=== PATIENT | female | born 2000 | race African-American/Black ===

== ENCOUNTER 2020-08-02 10:04 | Emergency (ER) | payer OTHER ==
[2020-08-02] MEDS ORDERED: Clindamycin HCl 150 MG Cap PO ONE (10:38)
--- NOTE | 2020-08-02 10:38 | EDM.PDOC ---
ED HPI GENERAL MEDICAL PROBLEM - General Chief Complaint: Skin Complaint Stated Complaint: CYST ON LOWER BACK Time Seen by Provider: 08/02/20 10:24 - History of Present Illness INITIAL COMMENTS - FREE TEXT/NARRATIVE: 20-year-old female presents the emergency room with worsening pain for a bump on her bottom. Patient was seen in the walk-in clinic several days ago started on Augmentin the patient had this filled yesterday and started. She is taking 500 mg twice daily. She not have any fevers or chills this thing is considerably tender. Patient is not having any other associated symptoms with this most unfortunate problem. Patient is 33 weeks . Lower Back Pain Score (Numeric/FACES): 7 - Related Data Allergies Allergy/AdvReac Type Severity Reaction Status Date / Time No Known Allergies Allergy Verified 08/02/20 10:22 Home Meds: Home Meds Amoxicillin/Clavulanate K [Augmentin 500-125 MG] 1 tab PO BID 08/02/20 [History] Clindamycin HCl 450 mg PO TID #63 capsule 08/02/20 [Rx] Pnv No.95/Ferrous Fum/Folic AC [ Caplet] 1 each PO DAILY 08/02/20 [History] ED ROS GENERAL - Review of Systems Review Of Systems: See Below Constitutional: Reports: No Symptoms Respiratory: Reports: No Symptoms Cardiovascular: Reports: No Symptoms GI/Abdominal: Reports: No Symptoms ED EXAM, SKIN/RASH Exam: See Below Exam Limited By: No Limitations General Appearance: Alert, No Apparent Distress Respiratory/Chest: No Respiratory Distress, Lungs Clear, Normal Breath Sounds Cardiovascular: Regular Rate, Rhythm, No Edema, No Murmur Location, Skin: Other (Over the sacrum 3 to 4 cm proximal to the anus she has a 1.5 x 1 cm area favoring the right side no area of fluctuation with this however it is quite tender with palpation mildly erythematous.) Lymphatic: No Adenopathy Course - Vital Signs Last Recorded V/S: Last Vital Signs Temp 37.0 C 08/02/20 10:17 Pulse 96 08/02/20 10:17 Resp 20 08/02/20 10:17 BP 109/54 L 08/02/20 10:17 Pulse Ox 98 08/02/20 10:17 - Re-Assessments/Exams Free Text/Narrative Re-Assessment/Exam: 08/02/20 10:47 At this point I think clindamycin be more appropriate choice of antibiotics. I discussed this with Dr. Foster. The patient will see her on the second of this month for routine OB follow-up. The patient has surgical follow-up scheduled tomorrow with Dr. Norris. At this point will change the Augmentin from 500 twice daily to clindamycin 450 3 times daily. Departure - Departure Time of Disposition: 10:48 Disposition: Home, Self-Care 01 Clinical Impression: Pilonidal cyst with abscess - Discharge Information Referrals: Claudia Chambers MD [Primary Care Provider] - Additional Instructions: Return to the emergency room with any questions problems or worsening symptoms. Follow-up with Dr. Norris tomorrow as scheduled Stop the Augmentin, or the amoxicillin/clavulanic acid. You have been started on clindamycin 450 mg 3 times daily. Your first dose was given here in the emergency room. Follow-up with Dr. Foster on August 07 as scheduled. Try sitz bath with Epson salts for about 20 minutes 3 or 4 times a day this should help with the discomfort. Sepsis Event Note (ED) - Evaluation Sepsis Screening Result: No Definite Risk - Focused Exam Vital Signs: Vital Signs Temp Pulse Resp BP Pulse Ox 08/02/20 10:17 37.0 C 96 20 109/54 L 98
== END 2020-08-02 11:06 | disposition home or self-care (01) ==
LOC: JD.ED 10:04
DX: L05.01 Pilonidal cyst with abscess (principal)
CPT/HCPCS: 99282; A9270

== ENCOUNTER 2020-09-08 08:42 | Inpatient (IN) | payer OTHER ==
[2020-09-08] MEDS ORDERED: Sodium Chloride 0.9% 10 ML Syringe FLUSH PRN (10:10)
[2020-09-08] MEDS ORDERED: Acetaminophen 325 MG Tab PO PRN (10:10)
[2020-09-08] MEDS ORDERED: Ondansetron 4 MG/2 ML SDV IVPUSH PRN (10:10)
[2020-09-08] MEDS ORDERED: Lactated Ringers 1,000 ML IV SCH (10:15)
[2020-09-08] MEDS ORDERED: Oxytocin/Lactated Ringers 10 UNIT/1,000 ML BAG IV SCH ×2 (10:15)
--- NOTE | 2020-09-08 14:14 | PCM.SN.2 ---
- Free Text/Narrative Note: Called for IV start. Located left proximal AC basilic vein under ultrasound. [id number] technique X1 pass after sterile chloroprep. Routine insertion. Good flush and return. Placed on pigtail with pressure cap. RN at bedside assisting. 20g 1.88" catheter secured with clear occlusive and tape. No concerns at this time.
[2020-09-08] MEDS: Nalbuphine 10 MG/ML Syringe IVPUSH PRN ×2 (15:39→16:34)
--- NOTE | 2020-09-08 17:18 | PCM.LDHP ---
L&D History of Present Illness - General Date of Service: 09/08/20 Admit Problem/Dx: Patient Status Order with Admit Dx/Problem 09/08/20 10:10 Patient Status [ADT] Routine Admission Diagnosis/Problem Admission Diagnosis/Problem - History of Present Illness Introduction:: 20 year old at 38w4 here with srom and labor. Clear fluid. 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: Other OB/BYN History: Second pregancy Social & Family History - Family History Family Medical History: Noncontributory - Tobacco Use Tobacco Use Status *Q: Never Tobacco User Second Hand Smoke Exposure: No - Caffeine Use Caffeine Use: Reports: Coffee - Recreational Drug Use Recreational Drug Use: No H&P Review of Systems - Review of Systems: Review Of Systems: See Below General: Reports: No Symptoms HEENT: Reports: No Symptoms Pulmonary: Reports: No Symptoms Cardiovascular: Reports: No Symptoms Gastrointestinal: Reports: No Symptoms Genitourinary: Reports: No Symptoms Musculoskeletal: Reports: No Symptoms Skin: Reports: No Symptoms Psychiatric: Reports: No Symptoms Neurological: Reports: No Symptoms Hematologic/Lymphatic: Reports: No Symptoms Immunologic: Reports: No Symptoms L&D Exam - Exam Exam: See Below - Vital Signs Vital Signs: Last Vital Signs Temp 36.9 C 09/08/20 08:55 Pulse 79 09/08/20 08:55 Resp 14 09/08/20 08:55 BP 120/66 09/08/20 08:55 Pulse Ox 98 09/08/20 08:55 Weight: 89.721 kg - OB Specific Contraction Intensity: Moderate Movement: Active Heart Tones: Present Heart Rate (FHR) Variability: Moderate (6-25 bmp) Presentation: Vertex - Chavez Score Chavez Score Cervix Position: Midposition Chavez Score Consistency: Soft Chavez Score Effacement: 51-70% Chavez Score Dilation: 1-2 cm Chavez Score Infant's Station: -2 Chavez Score Total: 7 - Exam General: Alert, Oriented HEENT: PERRLA, Conjunctiva Clear, EACs Clear, EOMI, Hearing Intact, Mucosa Moist & [place], Nares Patent, Normal Nasal Septum, Posterior Pharynx Clear, TMs Clear Neck: Supple, Trachea Midline Lungs: Clear to Auscultation, Normal Respiratory Effort Cardiovascular: Regular Rate, Regular Rhythm GI/Abdominal Exam: Normal Bowel Sounds, Soft, Non-Tender, No Organomegaly, No Distention, No Abnormal Bruit, No Mass, Pelvis Stable Rectal Exam: Normal Exam, Normal Rectal Tone Back Exam: Normal Inspection, Full Range of Motion Extremities: Normal Inspection, Normal Range of Motion, Non-Tender, No Pedal Edema, Normal Capillary Refill Skin: Warm, Dry, Intact Neurological: Cranial Nerves Intact Psychiatric: Alert, Normal Affect, Normal Mood - Patient Data Lab Results Last 24 hrs: Laboratory Results - last 24 hr 09/08/20 09/08/20 09/08/20 Range/Units 09:14 10:30 10:30 WBC 9.35 (3.98-10.04) K/mm3 RBC 4.14 (3.98-5.22) M/mm3 Hgb 11.3 (11.2-15.7) gm/dl Hct 35.5 (34.1-44.9) % MCV 85.7 (79.4-94.8) fl MCH 27.3 (25.6-32.2) pg MCHC 31.8 L (32.2-35.5) g/dl RDW Std Deviation 43.8 (36.4-46.3) fL Plt Count 342 (182-369) K/mm3 MPV 10.5 (9.4-12.3) fl Neut % (Auto) 72.2 H (34.0-71.1) % Lymph % (Auto) 19.3 (19.3-51.7) % [place] % (Auto) 7.7 (4.7-12.5) % Eos % (Auto) 0.4 L (0.7-5.8) Baso % (Auto) 0.1 (0.1-1.2) % Neut # (Auto) 6.75 H (1.56-6.13) K/mm3 Lymph # (Auto) 1.80 (1.18-3.74) K/mm3 [place] # (Auto) 0.72 H (0.24-0.36) K/mm3 Eos # (Auto) 0.04 (0.04-0.36) K/mm3 Baso # (Auto) 0.01 (0.01-0.08) K/mm3 Membrane Rupture Positive H SARS-CoV-2 RNA ([place]) (NEGATIVE) Blood Type A POSITIVE Gel Antibody Screen Negative 09/08/20 Range/Units 10:45 WBC (3.98-10.04) K/mm3 RBC (3.98-5.22) M/mm3 Hgb (11.2-15.7) gm/dl Hct (34.1-44.9) % MCV (79.4-94.8) fl MCH (25.6-32.2) pg MCHC (32.2-35.5) g/dl RDW Std Deviation (36.4-46.3) fL Plt Count (182-369) K/mm3 MPV (9.4-12.3) fl Neut % (Auto) (34.0-71.1) % Lymph % (Auto) (19.3-51.7) % [place] % (Auto) (4.7-12.5) % Eos % (Auto) (0.7-5.8) Baso % (Auto) (0.1-1.2) % Neut # (Auto) (1.56-6.13) K/mm3 Lymph # (Auto) (1.18-3.74) K/mm3 [place] # (Auto) (0.24-0.36) K/mm3 Eos # (Auto) (0.04-0.36) K/mm3 Baso # (Auto) (0.01-0.08) K/mm3 Membrane Rupture SARS-CoV-2 RNA ([place]) Negative (NEGATIVE) Blood Type Gel Antibody Screen Result Diagrams: 09/08/20 10:30 Problem List Initiated/Reviewed/Updated: Yes Orders Last 24hrs: Active Orders 24 hr Category Date Time Status Patient Status [ADT] Routine ADT 09/08/20 10:10 Active Activity as Tolerated [RC] PFP Care 09/08/20 10:10 Active Communication Order [RC] ASDIRECTED Care 09/08/20 10:10 Active Heart Tones [RC] ASDIRECTED Care 09/08/20 10:11 Active Non Stress Test [RC] PER UNIT ROUTINE Care 09/08/20 09:20 Active Notify Provider [RC] PFP Care 09/08/20 10:10 Active Notify Provider [RC] PRN Care 09/08/20 10:10 Active Peripheral IV Care [RC] . DIRECTED Care 09/08/20 10:11 Active Vaginal Exam [RC] PRN Care 09/08/20 09:21 Active Vital Signs [RC] PER UNIT ROUTINE Care 09/08/20 09:20 Active Regular Diet [DIET] Diet 09/08/20 Breakfast Active PATIENT RETYPE [BBK] Routine Lab 09/08/20 11:15 Ordered RAPID PLASMA REAGIN,RPR [CHEM] Routine Lab 09/08/20 10:30 Received Acetaminophen [TylenoL] Med 09/08/20 10:10 Active 650 mg PO Q4H PRN Lactated Ringers [Ringers, Lactated] 1,000 ml Med 09/08/20 10:15 Active IV ASDIRECTED Nalbuphine [Nubain] Med 09/08/20 10:10 Active 10 mg IVPUSH Q2H PRN Ondansetron [Zofran] Med 09/08/20 10:10 Active 4 mg IVPUSH Q4H PRN Oxytocin/Lactated Ringers [Pitocin in LR 10 Units/1,000 Med 09/08/20 10:15 Active ML] 10 unit in 1,000 ml IV .CONTINUOUS Oxytocin/Lactated Ringers [Pitocin in LR 10 Units/1,000 Med 09/08/20 10:15 Active ML] 10 unit in 1,000 ml IV TITRATE Sodium Chloride 0.9% [Saline Flush] Med 09/08/20 10:10 Active 10 ml FLUSH ASDIRECTED PRN Electronic Heart Tones Ext w TOCO [WOMSER] Oth 09/08/20 10:10 Ordered Routine Electronic Heart Tones Internal [WOMSER] Per Unit Oth 09/08/20 10:10 Ordered Routine Peripheral IV Insertion Adult [OM.PC] Routine Oth 09/08/20 10:10 Ordered Resuscitation Status Routine Resus Stat 09/08/20 09:20 Ordered Medication Orders Acetaminophen (Tylenol) 650 mg PO Q4H PRN PRN Reason: Pain (Mild 1-3) and fever Lactated Ringer's (Ringers, Lactated) 1,000 mls @ 100 mls/hr IV ASDIRECTED RUPA Last Admin: 09/08/20 12:02 Dose: 100 mls/hr Documented by: MADDIE Oxytocin/Lactated Ringer's (Pitocin In Lr 10 Units/1,000 Ml) 10 unit in 1,000 mls @ 500 mls/hr IV .CONTINUOUS RUPA Oxytocin/Lactated Ringer's (Pitocin In Lr 10 Units/1,000 Ml) 10 unit in 1,000 mls @ 12 mls/hr IV TITRATE RUPA; Protocol Nalbuphine HCl (Nubain) 10 mg IVPUSH Q2H PRN PRN Reason: Pain Last Admin: 09/08/20 16:34 Dose: 10 mg Documented by: MADDIE Ondansetron HCl (Zofran) 4 mg IVPUSH Q4H PRN PRN Reason: Nausea/Vomiting Sodium Chloride (Saline Flush) 10 ml FLUSH ASDIRECTED PRN PRN Reason: Keep Vein Open Assessment/Plan Comment:: Term SROM. Augment with pitocin if needed
[2020-09-08] MEDS ORDERED: Lidocaine 1% 20 ML MDV INJECT ONE (18:00)
[2020-09-08] MEDS ORDERED: Lidocaine 1% 50 ML MDV ONE (19:30)
--- NOTE | 2020-09-08 19:46 | PCM.SN.2 ---
- Free Text/Narrative Note: Stage I - Patient presented with SROM. Progressed to complete with overall reassuring FHT. No epidural. Stage II - of viable male at ___ weight ___ apgars ___. Pitocin after delivery of . Head delivered in controlled manner over intact perineum. Shoulder dystocia of 18 seconds resolved with carri. Pitocin initiated after delivery of infant. Stage III - of intact placenta. 3vc. Small 2nd degree laceration repaired with 3-0 vicryl. EBL 150.
[2020-09-08] MEDS ORDERED: Docusate Sodium 100 MG Cap PO PRN (20:01)
[2020-09-08] MEDS ORDERED: Witch Hazel Medicated Pads 40/Jar TOP PRN (20:01)
[2020-09-08] MEDS ORDERED: Benzocaine/Menthol 20%-0.5% Spray 56 GM Canister TOP PRN (20:01)
[2020-09-08] MEDS: Ibuprofen 600 MG Tab PO PRN (20:15)
[2020-09-09] MEDS: Ibuprofen 600 MG Tab PO PRN ×2 (04:27→14:58)
[2020-09-10] MEDS: Ibuprofen 600 MG Tab PO PRN (06:21)
== END 2020-09-10 11:15 | disposition home or self-care (01) | DRG 807 ==
LOC: JD.OB 08:42 → JD.OBCHECK 08:42 → JD.OB 10:10 → OBSVTOIN 19:26 → JD.OB 19:27
PROVIDERS: ADMIT Obstetrics & Gynecology; ATTEND Obstetrics & Gynecology
PROC: 10E0XZZ Delivery of Products of Conception, External Approach (ICD-10-PCS; principal; 2020-09-08)
PROC: 0KQM0ZZ Repair Perineum Muscle, Open Approach (ICD-10-PCS; 2020-09-08)
DX: O70.1 Second degree perineal laceration during delivery (principal); Z37.0 Single live birth; Z3A.38 38 weeks gestation of pregnancy; Z20.828 Contact with and (suspected) exposure to other viral communicable diseases
CPT/HCPCS: 36415; 59025; 59409; 84112; 85025; 86592; 86850; 86900; 86901; A9270-GY; J2001; J2300; J2590; J7120; U0002

== ENCOUNTER 2021-01-15 22:19 | Emergency (ER) | payer OTHER ==
--- NOTE | 2021-01-15 23:11 | EDM.PDOC ---
ED HPI GENERAL MEDICAL PROBLEM - General Chief Complaint: Abdominal Pain Stated Complaint: ABDOMINAL PAIN Time Seen by Provider: 01/15/21 22:26 Source of Information: Reports: Patient, Family History Limitations: Reports: No Limitations - History of Present Illness INITIAL COMMENTS - FREE TEXT/NARRATIVE: This is a 20-year-old female. She apparently just had a baby and has been doing fine. Tonight she had breakfast for dinner around 7:00 had sausage and eggs and pancakes. Then around 10 PM she had 2 brownies and then went to bed. She had sudden onset of epigastric pain and severe tightness in the right upper quadrant with chills and nausea. It hurts so bad she could hardly stand up. It is eased up considerably at this point and is about a 2 out of 10. She still feels like it is tight there but it is much better. She has no history of gallbladder problems. 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 Social & Family History - Family History Family Medical History: No Pertinent Family History - Caffeine Use Caffeine Use: Reports: None - Recreational Drug Use Recreational Drug Use: No ED ROS GENERAL - Review of Systems Review Of Systems: See Below Constitutional: Denies: Fever, Chills HEENT: Reports: No Symptoms Respiratory: Reports: No Symptoms Cardiovascular: Reports: No Symptoms Endocrine: Reports: No Symptoms GI/Abdominal: Reports: Other (As per HPI) : Reports: No Symptoms Musculoskeletal: Reports: No Symptoms Skin: Reports: No Symptoms Neurological: Reports: No Symptoms Psychiatric: Reports: No Symptoms ED EXAM, GI/ABD - Physical Exam Exam: See Below Exam Limited By: No Limitations General Appearance: Alert, WD/WN, No Apparent Distress Eyes: Bilateral: Normal Appearance Ears: Normal External Exam Nose: Normal Inspection Throat/Mouth: Normal Lips, Normal Voice, No Airway Compromise Head: Normocephalic Neck: Supple Respiratory/Chest: No Respiratory Distress, Lungs Clear, Normal Breath Sounds Cardiovascular: Regular Rate, Rhythm, No Murmur GI/Abdominal Exam: Soft, Other (Is tender in the right upper quadrant with a positive Cannon's, bowel sounds are decreased but they are present. No other acute findings.) Extremities: Normal Inspection, Normal Range of Motion Neurological: Alert, Oriented Psychiatric: Normal Affect, Normal Mood Skin Exam: Warm, Dry Course - Vital Signs Last Recorded V/S: Last Vital Signs Temp 97.2 F 01/15/21 22:39 Pulse 70 01/15/21 22:39 Resp 20 01/15/21 22:39 BP 111/56 L 01/15/21 22:39 Pulse Ox 98 01/15/21 22:39 - Orders/Labs/Meds Orders: Active Orders 24 hr Category Date Time Status Abdomen Ltd [US] Stat Exams 01/15/21 23:01 Taken Labs: Laboratory Tests 01/15/21 01/15/21 Range/Units 23:21 23:21 WBC 6.48 (3.98-10.04) K/mm3 RBC 3.91 L (3.98-5.22) M/mm3 Hgb 11.0 L (11.2-15.7) gm/dl Hct 34.7 (34.1-44.9) % MCV 88.7 D (79.4-94.8) fl MCH 28.1 (25.6-32.2) pg MCHC 31.7 L (32.2-35.5) g/dl RDW Std Deviation 47.2 H (36.4-46.3) fL Plt Count 272 (182-369) K/mm3 MPV 10.1 (9.4-12.3) fl Neut % (Auto) 46.8 (34.0-71.1) % Lymph % (Auto) 34.6 (19.3-51.7) % [place] % (Auto) 15.3 H (4.7-12.5) % Eos % (Auto) 2.8 (0.7-5.8) Baso % (Auto) 0.3 (0.1-1.2) % Neut # (Auto) 3.04 (1.56-6.13) K/mm3 Lymph # (Auto) 2.24 (1.18-3.74) K/mm3 [place] # (Auto) 0.99 H (0.24-0.36) K/mm3 Eos # (Auto) 0.18 (0.04-0.36) K/mm3 Baso # (Auto) 0.02 (0.01-0.08) K/mm3 Manual Slide Review Abnormal smear Sodium 142 (136-145) mEq/L Potassium 3.2 L (3.5-5.1) mEq/L Chloride 105 (98-107) mEq/L Carbon Dioxide 26 (21-32) mEq/L Anion Gap 14.2 (5-15) BUN 14 (7-18) mg/dL Creatinine 1.0 (0.55-1.02) mg/dL Est Cr Clr Drug Dosing 83.31 mL/min Estimated GFR (MDRD) > 60 (>60) mL/min BUN/Creatinine Ratio 14.0 (14-18) Glucose 127 H (74-106) mg/dL Calcium 8.5 (8.5-10.1) mg/dL Total Bilirubin 0.1 L (0.2-1.0) mg/dL AST 26 (15-37) U/L ALT 25 (14-59) U/L Alkaline Phosphatase 71 (46-116) U/L Total Protein 6.8 (6.4-8.2) g/dl Albumin 3.5 (3.4-5.0) g/dl Globulin 3.3 gm/dL Albumin/Globulin Ratio 1.1 (1-2) Lipase 104 (73-393) U/L - Radiology Interpretation Free Text/Narrative:: Ultrasound of the gallbladder is positive for gallstones. There does not appear to be any other acute findings. Departure - Departure Time of Disposition: 00:50 Disposition: Home, Self-Care 01 Condition: Good Clinical Impression: Right upper quadrant abdominal pain, Nausea Cholelithiasis Qualifiers: Cholelithiasis location: gallbladder Cholecystitis presence: without cholecystitis Biliary obstruction: without biliary obstruction Qualified Code(s): K80.20 - Calculus of gallbladder without cholecystitis without obstruction - Discharge Information *PRESCRIPTION DRUG MONITORING PROGRAM REVIEWED*: Not Applicable *COPY OF PRESCRIPTION DRUG MONITORING REPORT IN PATIENT ANGY: Not Applicable Instructions: Cholelithiasis, [id number] Referrals: Julieth Hancock PA-C [Physician Bander And Cellophaner Machine Helper] - Forms: ED Department Discharge Additional Instructions: You must avoid all greasy, oily and fried foods, anything that puts oil on your fingers do not eat, follow-up with Julieth Hancock PA-C for evaluation and referral to a surgeon for possible gallbladder removal, if there is marked worsening of your symptoms return to the ER. Sepsis Event Note (ED) - Evaluation Sepsis Screening Result: No Definite Risk - Focused Exam Vital Signs: Vital Signs Temp Pulse Resp BP Pulse Ox 01/15/21 22:39 97.2 F 70 20 111/56 L 98 - My Orders Last 24 Hours: My Active Orders 01/15/21 23:01 Abdomen Ltd [US] Stat - Assessment/Plan Last 24 Hours: My Active Orders 01/15/21 23:01 Abdomen Ltd [US] Stat
--- NOTE | 2021-01-16 08:58 | US ---
Limited abdominal ultrasound: Multiple real-time images of the upper right abdomen were obtained. Comparison: No prior abdominal imaging is available. Findings: Pancreas appears within normal limits. Liver shows no focal parenchymal abnormality. Several gallstones are seen within the gallbladder. Gallbladder wall is mildly thickened but is not well distended. No biliary duct dilatation is seen. Proximal aorta shows no aneurysm. Right kidney shows no hydronephrosis or mass. Right kidney has a length of 10.7 cm. Inferior vena cava is patent. Main portal vein shows normal hepatopedal flow. Impression: 1. Several gallstones with mild gallbladder wall thickening. Gallbladder wall thickening is difficult to confirm as the gallbladder is not well distended. No biliary duct dilatation is seen. If patient seems to have right upper quadrant symptoms, nuclear medicine HIDA scan could be considered. 2. Other portions of the right upper quadrant abdominal ultrasound are unremarkable. 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
== END 2021-01-16 01:30 | disposition home or self-care (01) ==
LOC: JD.ED 22:19
DX: K80.20 Calculus of gallbladder without cholecystitis without obstruction (principal)
CPT/HCPCS: 36415; 76705; 76705-26; 80053; 83690; 85025; 99283; 99284-25

== ENCOUNTER 2021-02-23 09:30 | Day surgery (SDC) | payer OTHER ==
[~2021-02-23 09:30] MED LIST: Lactated Ringers 1,000 ML IV SCH; Lidocaine 1%/Sod Bicarbonate in NS 8.4% 1 ML Syringe IDERM PRN; Sodium Chloride 0.9% 10 ML Syringe FLUSH PRN
[2021-02-23] MEDS ORDERED: Bupivacaine 0.5% 30 ML SDV ONE (10:17)
--- NOTE | 2021-02-23 10:23 | PCM.PREANE ---
Preanesthetic Assessment - Procedure Proposed Procedure: Laparoscopic Cholecystectomy - Anesthesia/Transfusion/Family Hx Anesthesia History: Prior Anesthesia Without Reaction Family History of Anesthesia Reaction: No Transfusion History: No Prior Transfusion(s) - Review of Systems General: No Symptoms Pulmonary: No Symptoms Cardiovascular: No Symptoms Gastrointestinal: No Symptoms Neurological: No Symptoms Other: Reports: Depression - Physical Assessment NPO Status Date: 02/22/21 NPO Status Time: 20:30 Weight: 70.5 kg ASA Class: 1 Mental Status: Alert & Oriented x3 Airway Class: Mallampati = 1 Dentition: Reports: Missing Tooth/Teeth (Molar ) Thyro-Mental Finger Breadths: 3 Mouth Opening Finger Breadths: 3 ROM/Head Extension: Full Lungs: Clear to Auscultation, Normal Respiratory Effort Cardiovascular: Regular Rate, Regular Rhythm - Lab Values: Laboratory Last Values Urine HCG, Qual Negative (NEGATIVE) 02/23/21 09:39 - Allergies Allergies/Adverse Reactions: Allergies Allergy/AdvReac Type Severity Reaction Status Date / Time No Known Allergies Allergy Verified 02/22/21 16:21 - Anesthesia Plan Pre-Op Medication Ordered: Anxiolytic - Acknowledgements Anesthesia Type Planned: General Anesthesia Pt an Appropriate Candidate for the Planned Anesthesia: Yes Alternatives and Risks of Anesthesia Discussed w Pt/Guardian: Yes Pt/Guardian Understands and Agrees with Anesthesia Plan: Yes PreAnesthesia Questionnaire - Past Health History Medical/Surgical History: Denies Medical/Surgical History HEENT History: Reports: None Cardiovascular History: Reports: None Respiratory History: Reports: None Gastrointestinal History: Reports: Cholelithiasis Genitourinary History: Reports: None 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: Other OB/BYN History: DEPRESSION, Musculoskeletal History: Reports: None Neurological History: Reports: None Psychiatric History: Reports: None Endocrine/Metabolic History: Reports: None Hematologic History: Reports: None Immunologic History: Reports: None Oncologic (Cancer) History: Reports: None Dermatologic History: Reports: None - Infectious Disease History Infectious Disease History: Reports: None - Past Surgical History Head Surgeries/Procedures: Reports: None HEENT Surgical History: Reports: None Cardiovascular Surgical History: Reports: None Respiratory Surgical History: Reports: None GI Surgical History: Reports: None Female Surgical History: Reports: None Male Surgical History: Reports: None Endocrine Surgical History: Reports: None Neurological Surgical History: Reports: None Musculoskeletal Surgical History: Reports: None Oncologic Surgical History: Reports: None Dermatological Surgical History: Reports: None - SUBSTANCE USE Tobacco Use Status *Q: Never Tobacco User Recreational Drug Use History: No - HOME MEDS Home Medications: Home Meds Pnv No.95/Ferrous Fum/Folic AC [ Caplet] 1 each PO DAILY 08/02/20 [History] Sertraline [Zoloft] 25 mg PO DAILY 01/15/21 [History] - CURRENT (IN HOUSE) MEDS Current Meds: Current Medications Lactated Ringer's (Ringers, Lactated) 1,000 mls @ 125 mls/hr IV ASDIRECTED RUPA Stop: 02/23/21 23:00 Lidocaine/Sodium Bicarbonate (Lidocaine 1%/Sod Bicarbonate In Ns 8.4% 1 Ml Syringe) 0.25 ml IDERM ONETIME PRN PRN Reason: Prior to IV Start Stop: 02/23/21 18:00 Sodium Chloride (Sodium Chloride 0.9% 10 Ml Syringe) 10 ml FLUSH ASDIRECTED PRN PRN Reason: Keep Vein Open Stop: 02/23/21 18:00 Discontinued Medications Bupivacaine HCl (Bupivacaine 0.5% 30 Ml Sdv) Confirm Administered Dose 30 ml .ROUTE .STK-MED ONE Stop: 02/23/21 10:18
[2021-02-23] MEDS ORDERED: Midazolam 1 MG/ML 2 ML SDV IVPUSH PRN (10:24)
[2021-02-23] MEDS ORDERED: Lidocaine 1% 4 ML ONE (10:48)
[2021-02-23] MEDS ORDERED: fentaNYL 250 MCG/5 ML SDV ONE (10:48)
[2021-02-23] MEDS ORDERED: Ondansetron 4 MG/2 ML SDV ONE (10:48)
[2021-02-23] MEDS ORDERED: Rocuronium 50 MG/5 ML Vial ONE (10:48)
[2021-02-23] MEDS ORDERED: Dexamethasone 4 MG/ML 5 ML MDV ONE (10:48)
[2021-02-23] MEDS ORDERED: Propofol 200 MG/20 ML SDV ONE (10:48)
[2021-02-23] MEDS ORDERED: Ketorolac 15 MG/ML SDV ONE (10:48)
[2021-02-23] MEDS ORDERED: diphenhydrAMINE 50 MG/ML SDV IVPUSH PRN (10:51)
[2021-02-23] MEDS ORDERED: Ondansetron 4 MG/2 ML SDV IVPUSH PRN ×2 (10:51→12:05)
[2021-02-23] MEDS ORDERED: fentaNYL 100 MCG/2 ML SDV IVPUSH PRN (10:52)
[2021-02-23] MEDS ORDERED: Ketamine 500 mg/10 ML MDV ONE (11:22)
[2021-02-23] MEDS ORDERED: Scopolamine 1.5 MG Transdermal Patch TRDERM ONE (11:30)
--- NOTE | 2021-02-23 11:55 | PCM.PRNOTE ---
- Free Text/Narrative Note: Date: 02/23/2021 Operation: laparoscopic cholecystectomy Indication: symptomatic cholelithiasis Surgeon: Jr Clarke MD Findings: normal anatomy. Critical view of safety obtained. No significant blood loss, no bile spilled. Detailed Report: The patient was taken to the operating room and placed in supine position on the table. Timeout was performed and general endotracheal anesthesia was initiated. The abdomen was prepped and draped in usual sterile fashion. A Veress needle was placed the left upper quadrant to establish pneumoperitoneum. Needle and syringe was used to aspirate air just inferior to the umbilicus. A 5 mm bladed trocar was inserted at the site, and a 5 mm 30 degree laparoscope was inserted into the abdomen. No injury from Veress needle placement was noted, and the needle was removed. Additional ports were placed under laparoscopic visualization. 2 additional 5 mm ports were placed in the right upper quadrant, and a 12 mm trocar was placed in the subxiphoid region. The fundus of the gallbladder was grasped and retracted cephalad. The infundibulum was retracted laterally, and dissection ensued using hook monopolar energy and [place] dissector. There was no significant inflammation and anatomy appeared normal. The cystic structures were identified and skeletonized. A critical view of safety was obtained, with the cystic duct and artery seen running to the gallbladder with the free edge of the liver seen between the structures. Hemoclips were placed on the structures, with 2 on the stay side of the cystic duct and one on the cystic artery. Structures were transected with laparoscopic mireya. The gallbladder was removed from the liver using hook monopolar energy. Specimen was placed in an Endo Catch bag and removed through the subxiphoid site. The dissection bed was inspected and there was no significant blood. The larger port site was closed with a laparoscopic suture passer and 0 Vicryl suture. The right upper quadrant ports were removed under laparoscopic visualization and hemostasis was satisfactory. Pneumoperitoneum was released. All incision sites were closed with 4-0 Vicryl at the level of skin. Wounds were dressed with Dermabond. The patient tolerated the procedure well.
[2021-02-23] MEDS ORDERED: Lactated Ringers 1,000 ML ONE (11:59)
--- NOTE | 2021-02-23 12:05 | PCM.POSTAN ---
POST ANESTHESIA ASSESSMENT - MENTAL STATUS Mental Status: Alert, Oriented - VITAL SIGNS Vital Signs: Last Vital Signs Temp 36.2 C 02/23/21 11:39 Pulse 68 02/23/21 11:39 Resp 16 02/23/21 11:39 BP 108/59 L 02/23/21 11:39 Pulse Ox 100 02/23/21 11:39 - RESPIRATORY Respiratory Status: Respiratory Rate WNL, Airway Patent, O2 Saturation Stable, Supplemental Oxygen - CARDIOVASCULAR CV Status: Pulse Rate WNL, Blood Pressure Stable - GASTROINTESTINAL GI Status: No Symptoms - PAIN Pain Score: 0 - POST OP HYDRATION Hydration Status: Adequate & Stable
[2021-02-23] MEDS ORDERED: HYDROmorphone 0.5 MG/0.5 ML Syringe IVPUSH ONE (12:06)
--- NOTE | 2021-02-23 12:40 | PCM48HPAN ---
Post Anesthesia Note - EVALUATION WITHIN 48HRS OF ANESTHETIC Vital Signs in Normal Range: Yes Patient Participated in Evaluation: Yes Respiratory Function Stable: Yes Airway Patent: Yes Cardiovascular Function Stable: Yes Hydration Status Stable: Yes Pain Control Satisfactory: Yes Nausea and Vomiting Control Satisfactory: Yes Mental Status Recovered: Yes Vital Signs: Last Vital Signs Temp 36.1 C 02/23/21 12:00 Pulse 68 02/23/21 11:39 Resp 13 02/23/21 12:30 BP 118/74 02/23/21 12:30 Pulse Ox 100 02/23/21 12:30
[2021-02-23] MEDS ORDERED: oxyCODONE 5 MG Tab PO PRN (13:02)
== END 2021-02-23 14:08 | disposition home or self-care (01) ==
LOC: JD.SDS 09:30
PROVIDERS: ATTEND Surgery
DX: K81.1 Chronic cholecystitis (principal)
CPT/HCPCS: 36415; 47562; 80048; 81025; A9270; J1100; J1170; J1885; J2250; J2405; J2704; J2710; J3010; J3490; J7120; 00790

== ENCOUNTER 2022-09-24 02:48 | Inpatient (IN) | payer OTHER ==
[2022-09-24] MEDS ORDERED: Calcium Carbonate 500 MG Tab.Chew PO PRN (03:43)
[2022-09-24] MEDS ORDERED: Lidocaine 1% 50 ML MDV INJECT ONE (03:43)
[2022-09-24] MEDS ORDERED: Sodium Chloride 0.9% 10 ML Syringe FLUSH PRN (03:43)
[2022-09-24] MEDS ORDERED: Nalbuphine HCl 10 MG/ 1ML Amp IVPUSH PRN (03:43)
[2022-09-24] MEDS ORDERED: Ondansetron 4 MG/2 ML SDV IVPUSH PRN (03:43)
[2022-09-24] MEDS ORDERED: Oxytocin/Lactated Ringers 10 UNIT/1,000 ML BAG IV SCH ×2 (03:45→13:30)
[2022-09-24] MEDS ORDERED: Lactated Ringers 1,000 ML IV SCH (03:45)
[2022-09-24] MEDS ORDERED: Docusate Sodium 100 MG Cap PO PRN (16:08)
[2022-09-24] MEDS ORDERED: Witch Hazel Medicated Pads 40/Jar TOP PRN (16:08)
[2022-09-24] MEDS ORDERED: Benzocaine/Menthol 20%-0.5% Spray 78 GM Cannister TOP PRN (16:08)
[2022-09-24] MEDS: Ibuprofen 600 MG Tab PO PRN (17:55)
[2022-09-24] MEDS: Acetaminophen 325 MG Tab PO PRN (21:12)
[2022-09-25] MEDS: Ibuprofen 600 MG Tab PO PRN ×3 (00:28→14:53)
[2022-09-25] MEDS: Acetaminophen 325 MG Tab PO PRN ×2 (05:05→14:54)
[2022-09-25] MEDS ORDERED: Sertraline 25 MG Tab PO SCH (09:00)
== END 2022-09-25 16:30 | disposition home or self-care (01) | DRG 807 ==
LOC: JD.OBCHECK 02:48 → JD.OB 02:50 → JD.OBCHECK 03:43 → JD.OB 03:44 → OBSVTOIN 15:53 → JD.OB 15:54
PROVIDERS: ADMIT Obstetrics & Gynecology; ATTEND Obstetrics & Gynecology
PROC: 10E0XZZ Delivery of Products of Conception, External Approach (ICD-10-PCS; principal; 2022-09-24)
PROC: 10907ZC Drainage of Amniotic Fluid, Therapeutic from Products of Conception, Via Natural or Artificial Opening (ICD-10-PCS; 2022-09-24)
PROC: 3E0R3BZ Introduction of Anesthetic Agent into Spinal Canal, Percutaneous Approach (ICD-10-PCS; 2022-09-24)
DX: O42.02 Full-term premature rupture of membranes, onset of labor within 24 hours of rupture (principal); Z37.0 Single live birth; Z3A.39 39 weeks gestation of pregnancy
CPT/HCPCS: 36415; 59025; 59409; 85025; 86592; A9270-GY; J2300; J2590; J7120